=== PATIENT | female | born 1980 | race Two or more races ===

== ENCOUNTER 2016-08-22 02:23 | Emergency (ER) | payer MEDICARE ==
[2016-08-22 02:56] VITALS: TEMP 98.3
[2016-08-22] MEDS ORDERED: NS 1,000 ML IV ONE (03:00)
[2016-08-22] MEDS ORDERED: METOCLOPRAMIDE 10 MG/2 ML VIAL IV ONE (03:01)
[2016-08-22] MEDS ORDERED: SODIUM CHLORIDE 0.9% 3 ML FLUSH FLUSH PRN (03:01)
--- NOTE | 2016-08-22 03:04 | EDPRACDOC ---
- General Information Stated Complaint: ABDOMINAL PAIN Time Seen by Provider: 08/22/16 02:50 Information Source: Patient Mode Of Arrival: Car Home Medications: Home Medications Levothyroxine Sodium [Synthroid] 50 mcg PO QAM 04/11/13 Ethinyl Estradiol/Drospirenone [Gianvi 3 mg-0.02 mg Tablet] 1 tab PO QHS Gabapentin [Neurontin] 600 mg PO TID 07/31/16 Levofloxacin [Levaquin] 750 mg PO DAILY #10 tab 07/31/16 Ondansetron [Zofran Odt] 4 mg PO Q6H PRN #20 tab.rapdis 07/31/16 Oxycodone HCl/Acetaminophen [Percocet 5-325 mg Tablet] 1 each PO Q4 #20 tablet 07/31/16 Ranitidine HCl [Zantac] 150 mg PO DAILY 07/31/16 Valacyclovir HCl [Valtrex] 500 mg PO .BID X 10D 07/31/16 Metoclopramide HCl [Reglan] 5 mg PO Q8 PRN #30 tab 08/22/16 Allergies/Adverse Reactions: Allergies Allergy/AdvReac Type Severity Reaction Status Date / Time eletriptan HBr [From Relpax] Allergy See Verified 08/22/16 03:02 Comments prochlorperazine edisylate Allergy Irregular Verified 08/22/16 03:02 [From Compazine] Heartbeat prochlorperazine maleate Allergy Irregular Verified 08/22/16 03:02 [From Compazine] Heartbeat sumatriptan [From Imitrex] Allergy See Verified 08/22/16 03:02 Comments sumatriptan succinate Allergy See Verified 08/22/16 03:02 [From Imitrex] Comments - History of Present Illness HPI: PT PRESENTS WITH NAUSEA AND VOMITING WITH ABDOMINAL PAIN. BURNING IN CHARACTER ACROSS EPIGASTRIC STOMACH. HAD SIMILAR SYMPTOMS 2 WEEKS AGO AND WAS SEEN WITH LABS AND CT ABDOMEN WITHOUT CAUSE. Pain Quality: Reports: Burning Pain Severity: Mild Pain Location: Reports: Epigastric Associated Signs & Symptoms: Reports: Nausea, Vomiting. Denies: Diarrhea, Fever Oral Intake: Decreased ED Past Medical History - History Reviewed Yes Nurses notes reviewed and agree except as marked - Patient Medical History Neurological History: Reports: Migraine GI/ History: Reports: Gastroesophageal Reflux Psychological History: Reports: Depression, Anxiety. Denies: Substance Use Disorder Systemic History: Reports: Hypothyroidism Additional Past Medical History: CHRONIC PAIN Surgical History: Reports: Cholecystectomy, Other (GASTRIC BYPASS, LAP WITH TRINIDAD) - Family Medical History Reports: Hypertension (MOTHER), Stroke (MAT GRANDFATHER). Denies: Diabetes, Cancer, Cardiac Disorders - Social Medical History Smoking Status: Never smoker Social History: Denies: Substance Use Disorder Lives In: Home EDM Review of Systems - Review of Systems ROS Negative Except as Marked: Yes All systems reviewed and were negative except as marked Constitutional: Fatigue. negative: Fever Respiratory: negative: Shortness of Breath Cardiovascular: negative: Chest Pain Gastrointestinal: Nausea, Pain, Vomiting. negative: Diarrhea Genitourinary: negative: Dysuria - Physical Exam Constitutional: Alert Oriented to: Time, Person, Place Last recorded Vital Signs: Last Vital Signs Temp 98.3 F 08/22/16 02:55 Pulse 111 08/22/16 02:55 Resp 18 08/22/16 02:55 BP 156/85 08/22/16 02:55 Pulse Ox 100 08/22/16 02:55 Oxygen Pulse Oxygen Saturation 100 O2 Device Oxygen Flow Rate Fraction of Inspired Oxygen ( FIO2) - HEENT Head: negative: Deformity, Laceration Eye Exam: negative: Conjunctival Injection, Pale Conjunctiva Oropharynx: negative: Membranes Dry Nose: negative: Congestion, Discharge Neck: negative: Limited ROM - Respiratory/Cardiovascular Respiratory: Normal - CTA. negative: Accessory Muscle Use, Diminished, Tachypnea Cardiovascular: Tachycardia. negative: Bradycardia, Irregular - GI Auscultation: Normal Palpation: Normal Tenderness: Mild, Epigastric. negative: Guarding, Rebound, Rigidity - Integumentary Skin: Warm, Dry. negative: Rash - Neurologic Memory Impaired: Normal Motor Function: Normal Mood Description: Anxious Thought: Coherent Perception: Normal - Results 08/22/16 03:19 08/22/16 03:19 - Departure Yes I personally saw and evaluated the patient. Disposition: Home Condition: Stable Final Diagnosis: Abdominal pain Nausea & vomiting Qualifiers: Vomiting type: unspecified Vomiting Intractability: non-intractable Qualified Code(s): R11.2 - Nausea with vomiting, unspecified Instructions: Acute Nausea and Vomiting (ED) Education/Counseling Given To: Patient Education/Counseling Given Regarding: Diagnosis, Treatment, Prognosis, Follow Up Referrals: None,No Provider [Primary Care Provider] - Call for Appointment Patric Loyola MD [Staff Physician] - As Needed Prescriptions: Metoclopramide HCl [Reglan] 5 mg PO Q8 PRN #30 tab PRN Reason: Nausea
[2016-08-22 03:05] VITALS: BMI 50.8
[2016-08-22 03:28] LABS: AUTOMATED BASOPHIL 1.4 % (0-2); AUTOMATED EOSINOPHIL 0.6 % (0-5); AUTOMATED LYMPH 29.1 % (17-44); AUTOMATED MONOCYTE 4.7 % (3-10); AUTOMATED NEUTROPHIL 64.2 % (45-76)
[2016-08-22 03:37] LABS: BLOOD UREA NITROGEN 7 MG/DL (7-17); CALC CORRECTED 8.8 MG/DL (8.4-10.2); CALCIUM 8.3 MG/DL (8.4-10.2); CALCULATED OSMOLALITY 269 MOs/Kg (270-290); CHLORIDE 107 mEq/L (98-107); GLUCOSE 103 MG/DL (70-99); SODIUM LEVEL 141 mEq/L (137-146)
[2016-08-22 04:20] VITALS: BP 112/53; PULSE 96
[2016-08-22] MEDS ORDERED: SODIUM CHLORIDE 0.9% 3 ML FLUSH FLUSH SCH (06:00)
== END 2016-08-22 04:12 | disposition home or self-care (01) ==
LOC: ED 02:23
DX: R10.13 Epigastric pain (principal); R11.2 Nausea with vomiting, unspecified; K21.9 Gastro-esophageal reflux disease without esophagitis; E03.9 Hypothyroidism, unspecified; G89.29 Other chronic pain; Z98.84 Bariatric surgery status; Z79.899 Other long term (current) drug therapy
CPT/HCPCS: 36415; 80053; 83690; 85025; 96361; 96374; 99284; J2765